=== PATIENT | female | born 1970 | race Caucasian/White ===

== ENCOUNTER → 2021-03-05 11:23 | Outpatient (CLI) | payer OTHER, SELFPAY ==
--- NOTE | 2021-03-05 | EMB_PTH ---
PATIENT: YO ROMAN LOC: [facility] U#:[id number] AGE/SX: 55/F ROOM: RE03/05/[address]: Dr. Imer Ruiz MD : 1970 BED: DIS: SPEC #: [id number] RECD: 03/05/21 13:05 STATUS: CHARLEY TERESA #: [id number] ALAINA: 03/05/21 00:[address]: Imer Ruiz DEPT: SURGICAL PATHOLOGY RECD BY: Abdulkadir Milian Tissues: Endometrium, NOS Procedures: Surgery Specimen Level IV HEADER OPERATION: Endometrial biopsy PRE-OP DIAGNOSIS: N85.8 TISSUE SUBMITTED: Endometrial biopsy MICROSCOPIC DIAGNOSIS Endometrium, biopsy: Secretory endometrium. AM:jonathan 03/07/2021 MICROSCOPIC DESCRIPTION Slides are reviewed. GROSS DESCRIPTION Received in fixative is one container labeled with the patient's name and designated endometrial biopsy. The specimen consists of multiple irregular fragments of light abraham soft tissue that in aggregate measure 2.1 x 1.6 x 0.2 cm. The specimen is totally submitted in one cassette. / AM:jonathan 03/06/21 TC:5 CPT: 67103
[2021-03-05 13:09] LABS: Hematocrit 38.8 % (37-47); Hemoglobin 12.9 g/dL (12.0-15.0); Mean Corp Hgb Conc 33.2 g/dL (32-36); Mean Corpuscular Volume 90.2 fL (81-99); Mean Platelet Vol. 10.7 fl (6.2-12.0); Platelet Count 297 K/mm3 (150-450); RBC Distribution Width CV 14.3 % (11.6-14.6); RBC Distribution Width SD 47.8 fl (35.1-43.9); White Blood Count 9.4 K/mm3 (4.4-11.0)
[2021-03-06 13:49] LABS: Carbohydrate Ag 19-9 2261 16 U/mL (0-35)
[2021-03-06 16:11] LABS: Cancer Antigen 125 29.4 U/mL (0.0-38.1); Carcinoembryonic Antigen 2.1 ng/mL (0.0-4.7)
[2021-03-08 11:18] LABS: HPV Reflexed? NOT INDICATED
== END ==
PROVIDERS: Visit Provider Obstetrics & Gynecology
DX: N85.8 Other specified noninflammatory disorders of uterus (principal); Z12.4 Encounter for screening for malignant neoplasm of cervix
CPT/HCPCS: 36415; 82378; 85027; 86301; 86304; 86900; 86901; 88175; 88305; G0145

== ENCOUNTER 2021-04-18 07:19 | Inpatient (IN) | payer SELFPAY, OTHER ==
--- NOTE | 2021-04-12 13:16 | EKG12_ITS ---
Test Reason : PRE OP Blood Pressure : / mmHG Vent. Rate : 067 BPM Atrial Rate : 067 BPM P-R Int : 180 ms QRS Dur : 074 ms QT Int : 418 ms P-R-T Axes : 018 011 029 degrees QTc Int : 441 ms Normal sinus rhythm Normal ECG Confirmed by JUSTUS CUMMINS, AMBROCIO ([id number]), index editor SUHAS HUIZAR ([id number]) on 04/16/2021 8:58:10 AM Referred By: Imer Ruiz Confirmed By:AMBROCIO JEROME MD
[2021-04-12 15:37] LABS: Hematocrit 36.8 % (37-47); Mean Corp Hgb Conc 32.6 g/dL (32-36); Mean Corpuscular Hgb 29.3 pg (27.0-32.0); Platelet Count 278 K/mm3 (150-450); RBC Distribution Width CV 13.2 % (11.6-14.6); RBC Distribution Width SD 43.8 fl (35.1-43.9); Red Blood Count 4.09 M/mm3 (4.2-5.4); White Blood Count 6.7 K/mm3 (4.4-11.0)
[2021-04-12 16:12] LABS: Magnesium 2.3 mg/dL (1.6-2.6)
[2021-04-18] VITALS (14 sets, daily range): BP systolic 97–131; BP diastolic 61–73; PULSE 46–72; RESP 14–18; TEMP 35.8–36.6; O2SAT 95–106; BMI 33.2
--- NOTE | 2021-04-18 | IMM_PTH ---
PATIENT: YO ROMAN LOC: MS3 U#:[id number] AGE/SX: 50/F ROOM: [facility] [place]/18/[address]: Dr. Imer Ruiz MD : 1970 BED: 1 DIS: 04/19/2021 SPEC #: [id number] RECD: 04/22/21 11:52 STATUS: CHARLEY REQ #: [id number] ALAINA: 04/18/21 00:[address]: Imer Ruiz DEPT: IMMUNOHISTOCHEMISTRY RECD BY: Zaynab Clark ENTERED: 04/22/21 11:55 SP TYPE: IMMUNO OTHR DR: ENIO Whitmore Tissues: B - Uterus, NOS Procedures: SMA (add) CD31 (add) CD34 (add) DESMIN (add) KI-67 (add) FACTOR VIII (add) MELAN-A (add) Vimentin (initial) S-100 (add) PHYSICIAN & INSTITUTION [address] [address] SPECIMEN INFORMATION: Tissue Source: B ? Adnexal mass Clinical Info: Intra-abdominal and pelvic swelling, mass Specimen Number: [id number] CPT code: 91239, 16094 x8 METHODOLOGY: Deparaffinized sections of prefer/formalin-fixed tissue or PAP/DQ stained slides are incubated with monoclonal/polyclonal antibodies/oligonucleotide probes. Localization is made via biotin free immunoperoxidase method. Appropriate controls are performed and reacted as expected. Results on target cell population are indicated in the following table: RESULTS: ANTIBODY / CLONE RESULT Block B9 Vimentin (V9) positive CD31 (MOLLY/70A) negative Factor VIII (R Ag) negative CD34 (QBEnd-10) negative Actin (1A4) positive Desmin (CE-R-11) positive Melan A (A103) negative S-100 (4C4.9) negative Ki-67 (30-9) positive, low These tests were developed and their performance characteristics determined by [facility]. They may not have been cleared or approved by the U.S. Food and Drug Administration. The FDA has determined that such clearance or approval is not necessary. The above immunohistochemical/dualISH markers are ordered and reviewed by the Pathologist. INTERPRETATION: B. Adnexal mass: Leiomyoma. BIBI:jonathan 04/23/2021
[2021-04-18] MEDS: Gabapentin 600 MG Tablet PO (07:30)
[2021-04-18 08:01] LABS: Internal QC Validated? YES +Cl - CLEAR BKGD; Pregnancy, Urine Negative Negative
[2021-04-18] MEDS: Lactated Ringers 1,000 ML 40 ML IV ×2 (08:23→14:46)
[2021-04-18] MEDS: Acetaminophen 500 MG Tablet 1000 MG PO ×3 (08:24→23:15)
[2021-04-18 09:01] LABS: Bedside Glucose 58 mg/dL (70-110)
--- NOTE | 2021-04-18 09:35 | HYST_PTH ---
PATIENT: YO ROMAN LOC: MS3 U#:[id number] AGE/SX: 50/F ROOM: IA[facility] RE04/18/[address]: Dr. Imer Ruiz MD : 1970 BED: 1 DIS: 04/19/2021 SPEC #: [id number] RECD: 04/18/21 13:49 STATUS: CHARLEY REObey #: [id number] ALAINA: 04/18/21 09:[address]: Imer Ruiz DEPT: SURGICAL PATHOLOGY RECD BY: Salma Patterson ENTERED: 04/19/21 07:47 SP TYPE: HYSTERECT OTHR DR: ENIO Whitmore Tissues: A - Uterus, NOS B - Uterus, NOS Procedures: Surgery Specimen Level IV Surgery Specimen Level V HEADER OPERATION: ERAS, total abdominal hysterectomy, bilateral salpingectomy PRE-OP DIAGNOSIS: Intra-abdominal and pelvic swelling, mass and lump TISSUE SUBMITTED: A ? Uterus, cervix, bilateral fallopian tubes, B ? Adnexal mass MICROSCOPIC DIAGNOSIS A. Uterus, cervix and fallopian tube, total abdominal hysterectomy and salpingectomy: Cervix ? mild chronic inflammation. Endometrium ? proliferative endometrium. Myometrium ? intramural leiomyoma (1 cm in greatest dimension). - Focal adenomyosis. Fallopian tube - no pathologic diagnosis. B. Adnexal mass and fallopian tube, salpingectomy and excision of adnexal mass: Fallopian tube - no pathologic diagnosis. Adnexal mass - leiomyoma (1174 gm and 16 cm in greatest dimension). See comment. SJ:jonathan 04/22/2021 COMMENT B. Immunohistochemistry ([id number]) supports the above diagnosis. The leiomyoma shows extensive edematous and degenerative changes. Please make reference to previous specimen ([id number]) endometrium, biopsy with diagnosis of ?secretory endometrium.? MICROSCOPIC DESCRIPTION Slides are reviewed. GROSS DESCRIPTION A - Received in fixative is one container labeled with the patient's name and designated uterus, cervix, bilateral fallopian tubes. The specimen consists of a hysterectomy specimen consisting of uterus with cervix and one detached fallopian tube. The second fallopian tube is not identified. The uterus with cervix weighs 130 gm and measures 11 x 7 x 5 cm. The serosal surface is ragged. The ectocervical mucosa is unremarkable. The external os is slit-like in contour. The endocervical canal measures 4.5 cm in length and the endocervical mucosa is abraham, glistening and unremarkable. The triangular endometrial cavity measures 5.5 cm in length and up to 2.5 cm in width. The endometrium is abraham, glistening without any mass lesion and measures 0.1 cm in thickness. Sections of the uterine wall reveal one nodular mass measuring 1 cm in greatest dimension. The uterine wall measures up to 2.5 cm in thickness. The detached fallopian tube measures 3 cm in length and 1 cm in diameter. The fimbrial end is identified. Sections reveal unremarkable cut surfaces. Aws Developer sections are submitted in eight cassettes as follows: 1 - anterior cervix, 2 - posterior cervix, 3 & 4 - anterior uterine wall, 5 & 6 - posterior uterine wall, 7 - nodular mass, 8 - fallopian tube. B - Received in fixative is one container labeled with the patient's name and designated adnexal mass. The specimen consists of fallopian tube and adjacent mass. The entire specimen weighs 1174 gm. The fallopian tube measures 6 cm in length and up to 0.8 cm in diameter. The fimbrial is identified. Sections reveal unremarkable cut surfaces. The adjacent mass measures 16 x 13 x 12 cm. The outer surface is smooth without any papillation. The resection margin is inked black and the rest of the capsular surface is inked blue. Cut surface shows solid and extensive edematous cut surfaces. Aws Developer sections are submitted in 12 cassettes as follows: 1??fallopian tube, 2-12 ? adnexal mass. / BIBI:jonathan 04/19/21 TC: 1 CPT: 80019, 84518
--- NOTE | 2021-04-18 10:42 | PCM.HP.BLA ---
History and Physical Date of Admission: 04/18/21 Surgical History and Physical Date: 04/18/2021 Name: BLANCA HARRY Age: 50 Date of : 1970 Blanca Harry, a 50 year old female 6 1 1 0 7, presents for Total abdominal hysterectomy, bilateral salpingectomy, possible bilateral oophorectomy on April 18, 2021 at 9:45. Blanca presents here today for VANDA, BS with possible Bilateral Oophorectomy. 50 y.o. G 8 P 7 non-smoker with history of Irregular Menses and LMP of 03-30-21 lasting 5-6 days. Denies new concerns at this time. Questions answered and consents signed. MEDICATIONS HISTORY: ALLERGIES: No Known Drug Allergies Infections - Chicken pox Illnesses - none and COVID Accidents - None Hospitalizations - Childbirth most recent pap about 2-3 years ago; Review of Systems: GENERAL - Denies fever, or chills SKIN - Denies skin changes EYES - Denies visual changes EARS - Denies difficulty hearing NOSE - Denies nasal congestion or bleeding MOUTH - Denies sore throat or difficulty swallowing NECK - Denies pain or swelling RESPIRATORY - Denies shortness of breath or wheezing CARDIOVASCULAR - Denies palpitations or chest pain GASTROINTESTINAL - Denies nausea, vomiting, diarrhea, constipation GENITOURINARY - Denies dysuria, frequency of urination, incontinence of urine MUSCULOSKELETAL - Denies joint or muscle pain NEUROLOGICAL - Denies localized numbness or weakness PSYCHIATRIC - Denies depression or anxiety ENDOCRINE - Denies heat or cold intolerance, weight loss or gain HEMATO-IMMUNOLOGIC - Denies excessive bleeding with cuts SOCIAL HISTORY: Alcohol Use - RARELY Smoking - denies smoking Diet - no special diet Lifestyle - Exercise - active Seat Belt Use - most of the time and just when riding in the front Employer - stay at home Illicit Drug Use - denies use of street drugs Sexual Activity - Residence - lives with Spouse-Sig Other Name - Kelton Spouse-Sig Other Occupation - [employer] Children Name(s) - 7 children Control - Natural Family Planning FAMILY HISTORY: MENSTRUAL HISTORY: LMP Known?- Approximate-Month KnownAmount/Duration - 5 days, Regularity - Irregular, Frequency - variable days, LMP - 03/30/21, Age Onset Menarche - 11 PAST PREGNANCIES: Total Pregnancies - 8; Full Term Pregnancies - 6; Premature - 1; Abortions, Induced - 0; Abortions, Spontaneous - 1; Ectopics - 0; Multiple Births - 0; Living Children - 7 SURGICAL HISTORY: 1. wisdom teeth ; - PHYSICAL EXAM BP- 112/68 Sitting, Right arm, regular cuff Weight- 174.14069 lbs Height- 60.75 inch BMI:[id number] CONSTITUTIONAL - NAD, well nourished, and well developed SKIN - No rash, lesions, or ulcers HEENT - Normocephalic, PERRLA, EOMI NECK - No nodes, no nuchal rigidity and thyroid normal size and texture LYMPH NODES - Palpation of lymph nodes in neck and groins within normal limits ABDOMEN - Without hepatosplenomegaly, distention, masses, rebound, or guarding; normal bowel sounds; no hernias EXTREMITIES - No edema or calf tenderness NEUROLOGICAL - Cranial nerves II-XII grossly intact PSYCHIATRIC - A and O to time, place, person, mood and affect External Genital Vagina - non-tender without lesions Urethra/Urethral Meatus - non-tender Bladder - non-tender Vagina - vaginal lucero are pink and moist without loss of rugae and no evidence of atrophy Cervix - without cervical motion tenderness and has normal size and features without evident lesions Uterus - Palpable mass approximately 20 cm. Palpable 4 to 5 fingerbreadths above the umbilicus, uterus versus ovary. Adnexa - clear without masses or tenderness ASSESSMENT/PLAN: 1. Intra-abdominal And Pelvic Swelling, Mass And Lump, Unspecified Site Patient from [facility] found to have abdominal mass. CT performed at noted to have 13.3 x 11.3 cm mass degenerating fibroid. Patient feels pressure. Irregular bleeding for 2 years 3 periods a year. Exam with solid mass 4 to 5 fingerbreadths above the umbilicus right greater than the left. EMB benign within normal limits, tumor markers benign within normal limits. Educated patient on results and discuss surgical options risk benefits alternatives. Discussed size of mass likelihood need for open incision risk benefits alternatives Patient given options for oncologist surgery, patient declines. Patient elects for total abdominal hysterectomy bilateral salpingectomy possible bilateral oophorectomy. [facility] 2. Encounter For Other Preprocedural Examination Patient for Total abdominal hysterectomy, bilateral salpingectomy, possible bilateral oophorectomy. Pelvic pain, uterine leiomyomas Educated patient on possible need for vertical midline incision versus low transverse incision, will be made at time of surgery Educated patient on anesthesia. Educated patient on lifting restrictions Patient desires to stay overnight. All questions were answered consent was signed
[2021-04-18] MEDS: Cefazolin 2 GM in 0.9% Normal Saline 100 ML IV (10:56)
--- NOTE | 2021-04-18 14:08 | PCM.OPRPT ---
Report of Operation Date of Procedure: 04/18/21 Pre-Operative Diagnosis: Pelvic pain, leiomyoma Post-Operative Diagnosis: Pelvic pain, right adnexal/broad ligament mass Surgery/Procedure Performed:: Total abdominal hysterectomy bilateral salpingectomy, removal of right adnexal/broad ligament mass Description of Surgical Findings:: Surgeon: Imer Ruiz MD Anesthesia: General EBL: 200 cc Urine output: 450 cc IV fluids: 1700 cc Complications: None Specimen: Uterus, cervix, bilateral fallopian tubes, right adnexal/broad ligament mass Findings: 12 to 15 cm round smooth mass found in the right broad ligament and partially attached to the right ovary. Overall the right ovary appeared normal. Otherwise normal uterus, tubes, and ovaries. Consent: Patient found to have uterine mass on imaging along with pelvic pain in need of total abdominal hysterectomy bilateral salpingectomy. Patient understood the risk of the procedure include but are not limited to visceral or vascular injury, prolonged hospitalization, blood loss and need for transfusion, reoperation. Patient state understanding and wished to proceed. All questions were answered and consent was signed. Procedure: Patient was brought back to the OR where general anesthesia was found to be adequate. 2 g of Ancef were given for infection prophylaxis. Patient was prepared and draped in a supine position. Maylard low transverse skin incision was made at the skin with a scalpel. The incision was carried down to the fascia with a scalpel. The fascia was excised extended laterally. Using a Liliana the rectus muscle was retracted in order to visualize the right inferior epigastrics, which were clamped cut and suture-ligated. Good hemostasis was noted. In a similar fashion a Liliana was used to retract the left rectus muscle in order to identify the left inferior epigastrics, which were clamped cut and suture-ligated. Good hemostasis was noted. Bilateral rectus muscles were undermined and transected with the Bovie. Good hemostasis was noted. Peritoneum was tented with hemostats and entered sharply with Metzenbaum scissors. Peritoneum was extended laterally. Ger retractor was inserted. And above findings were noted. Right round ligament was transfixed cut and anterior and posterior portion of the broad ligament were dissected in order to isolate broad ligament/adnexal mass. Right ureter was palpated and found to be out of the operative field. Adnexal mass was carefully dissected from the broad ligament along with from the right ovary. Mass removed and sent to pathology. Right mesosalpinx of the right fallopian tube was clamped cut and transfixed with suture. Anterior portion of broad ligament was further dissected and bladder flap was developed. Utero-ovarian ligament was clamped cut and transfixed with suture. Right uterine vessels were skeletonized clamped cut and transfixed with Ousmane transfixation sutures. Left round ligament was transfixed with suture cut and anterior and posterior portions of the broad ligament were dissected. Bladder flap was further developed. Left mesosalpinx was clamped and suture-ligated to remove left fallopian tube. Left utero-ovarian ligament was dissected clamped cut and [place] transfixation sutures were used. Left uterine vessels were skeletonized clamped cut and Ousmane transfixation sutures were used. Bladder flap was fully developed beyond the level of the cervix. Using Zeppelin clamps Metzenbaums and Mariam transfixation sutures bilateral uterine vessels were lateralized to the level of the cervical vaginal junction. Right ankle zeppelins were placed below the level of the cervix bilaterally. Using [place] scissors the colpotomy was made below the cervix and above the right angle Zeppelin clamps. Ousmane transfixation sutures were placed at each Zeppelin clamp. Good hemostasis was noted. Using [id number] the anterior and posterior portions of the colpotomy were reapproximated and good hemostasis was noted. Surgical sites were reinspected and good hemostasis was noted. Ger retractor was removed. Fascia was closed with PDS. Skin was closed in a subcuticular fashion. All counts correct x2. Patient tolerated the procedure well and was brought to recovery in a stable condition. mechanical shovel operator: Caroline Guy
[2021-04-18] MEDS: Ketorolac 30 MG/ML Syringe IV ×2 (17:47→23:14)
[2021-04-18] MEDS: 0.9% Saline Lock 10 ML Syringe IV (17:48)
[2021-04-18] MEDS: Docusate Sodium 100 MG Capsule PO (20:58)
[2021-04-19 01:34] VITALS: BP 127/67; PULSE 76; RESP 16; TEMP 36.9; O2SAT 96
[2021-04-19 05:26] VITALS: BP 113/64; PULSE 60; RESP 18; TEMP 36.8; O2SAT 94
[2021-04-19] MEDS: Acetaminophen 500 MG Tablet 1000 MG PO ×2 (05:28→12:54)
[2021-04-19] MEDS: Ketorolac 30 MG/ML Syringe IV ×2 (05:28→12:54)
[2021-04-19 06:56] LABS: Hematocrit 37.6 % (37-47); Hemoglobin 12.1 g/dL (12.0-15.0); Mean Corp Hgb Conc 32.2 g/dL (32-36); Mean Corpuscular Hgb 28.9 pg (27.0-32.0); Mean Platelet Vol. 10.2 fl (6.2-12.0); Platelet Count 278 K/mm3 (150-450); RBC Distribution Width CV 13.1 % (11.6-14.6); RBC Distribution Width SD 43.6 fl (35.1-43.9); Red Blood Count 4.18 M/mm3 (4.2-5.4); White Blood Count 12.2 K/mm3 (4.4-11.0)
[2021-04-19 07:03] VITALS: O2SAT 94
--- NOTE | 2021-04-19 07:46 | PN.OBGYN_ITS ---
Subjective Subjective No overnight complaints. Pain well controlled. Tolerating clear diet. Objective Data Objective Data Vital Signs: Vital Signs Temp Pulse Resp BP Pulse Ox 98.2 F 60 18 113/64 94 04/19/21 05:26 04/19/21 05:26 04/19/21 05:26 04/19/21 05:26 04/19/21 07:03 Oxygen Flow Rate (L/min) 6 Oxygen Delivery Method Room Air Weight: 175 lb 14.862 oz Body Mass Index (BMI) 33.2 Intake & Output: Intake and Output for Last 24 Hours 04/17/21 04/18/21 04/19/21 23:59 23:59 23:59 Intake Total 1335 / 2135 1450 / 1450 Output Total 775 / 1025 1400 / 1400 Balance 560 / 1110 50 / 50 Lab / Micro Data Result Diagrams: 04/19/21 06:20 Labs: Laboratory Results - last 24 hr 04/18/21 07:55: Urine Test Negative 04/18/21 08:03: POC Glucose 58 L 04/19/21 06:20: WBC 12.2 H, RBC 4.18 L, Hgb 12.1, Hct 37.6, MCV 90.0, MCH 28.9, MCHC 32.2, RDW Std Deviation 43.6, RDW Coeff of Rachele 13.1, Plt Count 278, MPV 10.2 Micro: Microbiology 04/12/21 13:15 Interface Orders SARS-CoV-2 Antigen (Rapid) - Final Physical Exam Const alert, oriented x3, no apparent distress and healthy appearing HEENT normocephalic and moist oral mucous membranes Head and Scalp: atraumatic Neck full ROM Resp normal respiratory effort, no retractions and no use of accessory muscles GI normal to inspection, nondistended, normoactive bowel sounds GI Narrative: Bandage clean dry and intact Extremity normal to inspection, full ROM and no clubbing, cyanosis or edema Psych mental status grossly normal, affect normal, speech normal and activity/motor behavior normal Assessment & Plan (1) Acute postoperative pain: PLAN: Postop day 1 status post total abdominal hysterectomy bilateral salpingectomy. Overall pain well controlled. Tolerating clear diet, for regular diet today. Wynn in place to be removed. Ambulating. Assuming voidi ng spontaneously can discharge home today
--- NOTE | 2021-04-19 07:49 | PCM.DC ---
Discharge Instructions Diet Discharge Diet: No restrictions Activity Discharge Activity: Return to Normal Activity, May Drive, May Shower and - (No tub baths for 2 weeks) May resume sexual activity in: 4-6 weeks Lifting Restrictions: No lifting over 25 pounds for 3 weeks Dressing / Incision Call your doctor if your incision/area has: Continuous Slow Oozing and Foul Smelling Discharge Call your doctor if you observe: Fever of 101 or Higher, Shortness of breath and Chest pain Follow Up Care Please Follow Up With: Imer Ruiz MD When: Follow-up 2 weeks postoperatively Test Results: Test results from this visit will be discussed in further detail at your follow-up appointment, if applicable. Discharge Plan Admission Admit Date/Time: 04/18/21 07:19 Primary Reason for Your Visit: Hysterectomy Attending Provider: Imer Ruiz Primary Care Provider: Josefa Cadleron Discharge Orders/Prescriptions Prescriptions: New oxycodone 5 mg Tablet 5 mg PO Q4H PRN PRN (Reason: Pain Score 4-10) 5 Days Qty: 28 RF: 0 Continued garlic 100 mg Tablet 100 mg PO DAILY RF: 0 [place] Oil 1,000 mg Capsule 1 cap PO DAILY RF: 0 turmeric root extract 500 mg Capsule 1,000 mg PO BID RF: 0 calcium carb-mag ox-zinc gluc 333-133-5 mg Tablet 3 tab PO DAILY RF: 0 Breath Ex 2 ophthalmic insert PO/SL DAILY RF: 0 Probiotic 10 billion cell Capsule 10,000 mmu cells PO DAILY RF: 0 Referrals / Follow Up: Josefa Calderon PA [Primary Care Provider] - Disposition Disposition (needs filled in before D/C Order can be placed): Home, Self Care
[2021-04-19 10:07] VITALS: BP 96/50; PULSE 70; RESP 14; TEMP 36.9; O2SAT 95
[2021-04-19] MEDS: Enoxaparin 40 MG/0.4 ML Syringe SC (10:48)
[2021-04-19] MEDS: Docusate Sodium 100 MG Capsule PO (10:48)
--- NOTE | 2021-04-19 11:18 | CASEMGMT ---
JANET KELLEY Assessment: Face to Face with pt for initial transition planning/care coordination assessment. RN CM introduced self and role at [facility], pt voices understanding and consents to assessment. Pt is A/O x4 and answers all questions appropriately at this time. Pt lying in bed reading a book in no distress. Care providers, pharmacy, and demographics verified/updated. Admitting Dx: VANDA, jonathan arana, poss BSO PCP:ENIO Whitmore Specialists: Sebas Ruiz, THERMAL MOLDER Preferred Pharmacy: [facility] while inpt Insurance: [facility] Package Plan, [employer] Prescription Benefit: no LW/HPOA: Pt denies. LNOK: Kelton Harry, Living Arrangements: Pt lives with and 3 daughters in a two story house with 3 steps to enter. Pt reports being I in ADL's and denies concerns at home. Transportation: Pt hires a tow bar driver for transportation. DME/HHC/SNF: Pt has a cane and walker at home but does not use. Pt denies hx of HHC or SNF stays. Pt states no concerns with going home at time of dc. Pt states no further concerns/needs. CM to follow. Advised pt to ask CM if any further question/concerns/needs arise, voices understanding. Pt Goal: Home Plan: Home
[2021-04-19 14:40] VITALS: BP 104/66; PULSE 65; RESP 18; TEMP 36.7; O2SAT 97
== END 2021-04-19 14:41 | disposition home or self-care (01) | DRG 743 ==
LOC: ACINP 07:22 → MS3 16:51
PROVIDERS: Anesthesiology; Admitting Provider Obstetrics & Gynecology; PCP Physician Assistant; Referring Provider Obstetrics & Gynecology; Visit Provider Obstetrics & Gynecology
PROC: 0UT90ZZ Resection of Uterus, Open Approach (ICD-10-PCS; CPT 58150; principal; 2021-04-18 09:15)
DX: D27.0 Benign neoplasm of right ovary (principal); D25.1 Intramural leiomyoma of uterus; N80.0 Endometriosis of uterus
CPT/HCPCS: 36415; 81025; 82962; 83735; 85027; 86850; 86870; 86900; 86901; 86902; 86920; 86922; 87426; 88305; 88307; 88341; 88342; 93005; 99251; C9803; J7120; A4216; G0463; J2405